=== PATIENT | female | born 1970 | race Caucasian/White ===

== ENCOUNTER 2022-10-07 17:17 | Emergency (ER) | payer MEDICAID, OTHER ==
[~2022-10-07] VITALS: Ht 157.5 cm; Wt 86.4 kg
[~2022-10-07 17:17] MED LIST: MECL-226 PO; PARO40TA PO
[2022-10-07] MEDS ORDERED: LORazepam 1 MG TABLET PO ONE (21:00)
[2022-10-07] MEDS ORDERED: ONDANSETRON HCL 4 MG TABLET PO ONE (21:00)
[2022-10-07 21:30] VITALS: BP 124/65
== END 2022-10-07 22:30 | disposition home or self-care (01) ==
LOC: EMS 17:22
DX: F41.9 Anxiety disorder, unspecified (principal); F32.A Depression, unspecified; Z98.51 Tubal ligation status
CPT/HCPCS: 99283; Q0162